=== PATIENT | male | born 1985 | race African-American/Black ===

== ENCOUNTER 2019-07-16 00:34 | Inpatient (IN) | payer OTHER ==
[~2019-07-16] VITALS: Ht 170.2 cm; Wt 68.0 kg
[2019-07-16] VITALS (7 sets, daily range): BP systolic 143–205; BP diastolic 69–123
[2019-07-16 00:54] LABS: ABSOLUTE NEUTROPHILS 7.2 thou/uL (1.4-8.2); BASOPHILS 0.3 % (0.0-2.0); EOSINOPHILS 0.2 % (0.0-3.0); HEMATOCRIT 44.8 % (42.0-52.0); HEMOGLOBIN 15.2 gm/dL (14.0-18.0); LYMPHOCYTES 14.3 % (24.0-44.0); MCH 30.6 pg (26.0-34.0); MCV 90.1 fL (80.0-100.0); MONOCYTES 7.2 % (1.0-8.0); PLATELET COUNT 360 thou/uL (150-400); RBC 4.97 mil/uL (4.50-6.00); RDW 15.1 % (10.5-14.5); WBC 9.2 thou/uL (4.0-11.0)
[2019-07-16 00:57] LABS: ANION GAP 20 mmol/L (7-16); BUN 27 mg/dL (7-18); CALCIUM 9.6 mg/dL (8.5-10.1); CHLORIDE 106 mmol/L (98-107); CO2 21 mmol/L (21-32); CREATININE 2.5 mg/dL (0.7-1.3); GLUCOSE 132 mg/dL (74-106); POTASSIUM 4.1 mmol/L (3.5-5.1); SODIUM 147 mmol/L (136-145)
[2019-07-16 01:07] LABS: AMP/METHAMP Negative (Negative); BARBITURATES Negative (Negative); BENZODIAZEPINES Negative (Negative); COCAINE Negative (Negative); METHADONE Negative (Negative); OPIATES Negative (Negative); PCP POSITIVE (Negative)
[2019-07-16 01:07] LABS: ALBUMIN 4.3 g/dL (3.4-5.0); DIRECT BILIRUBIN < 0.1 mg/dL (<0.1-0.2); SGOT 44 U/L (15-37); SGPT 35 U/L (30-65); TOTAL BILIRUBIN 0.6 mg/dL (<0.1-1.0); TOTAL PROTEIN 8.9 g/dL (6.4-8.2); TROPONIN-I <0.06 ng/mL (<0.06)
--- NOTE | 2019-07-16 02:51 | NUR ---
PT AWAKE, STATES HE THINKS HIS MONEY IS NOT ALL THERE, HIS LOTTERY TICKET NOT THERE. EMS CONTACTED. PT THINKS POLICE OR SOMEONE ELSE TOOK HIS MONEY. HE IS LOUD, IMPULSIVE. HAVE ATTEMPTED TO GET HOLD OF EMS AND POLICE, NOT SUCCESSFUL
--- NOTE | 2019-07-16 04:39 | NUR ---
PT ARRIVED TO UNIT FROM ER AT 0255. ADMITTED WITH PCP OVERDOSE AND PCP DELIRIUM. INCONTINENT OF BOWEL HERE AND ER. DENIES PAIN. POOR HISTORIAN. SOME HALLUCINATIONS AND RAMBLING SPEECH. BED ALARM ACTIVATED. FREQUENT OBSERVATION.
--- NOTE | 2019-07-16 10:51 | NUR ---
SOMNOLENT THIS A.M. IVF ORDERED. ST PER TELE. HTN NOTED. FALL PRECAUTIONS IN PLACE. CLOSE TO NURSES' STATION. WILL CONTINUE TO FOLLOW CLOSELY.
--- NOTE | 2019-07-16 12:07 | EKG ---
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 : 1985 Requested By: Darrell Danielson Order Number: [id number] MD: Mika Prater Measurements Intervals Doon Rate: 112 P: 79 SC: 101 QRS: 78 QRSD: 82 T: 264 QT: 332 QTc: 453 Interpretive Statements Sinus tachycardia Biatrial enlargement Left ventricular hypertrophy Repol abnrm suggests ischemia, diffuse leads Nonspecific ST segment abnormalities Artifact in lead(s) I,II,aVR No previous ECG available for comparison Electronically Signed On 07-16-2019 12:05:53 CDT by Mika Prater [email or web address] <ELECTRONICALLY SIGNED> By: Mika Prater MD 07/16/19 1205 0037 0037 Mika Prater MD /EPI
[2019-07-17 00:33] VITALS: BP 132/89
--- NOTE | 2019-07-17 03:47 | NUR ---
ASSESSEMENT DOCUMENTED.PT REMAINS A/OX2-3 WITH CONFUSION,PT SLEEPING MOST OF THE NOC BUT EASILY AROUSABLE.NO AGITATION EPISODES NOTED.PT ABLE TO VOICE HIS NEEDS WHEN PROMOTED.HAS PERIODS OF CONFUSION BUT EASILY REDIRECTED.JUAN PABLO DD,YELLOW URINE W/SEDIMENT.IVF PER ORDERS.SR ON MONITOR.ON RA W/O RESP DISTRESS.PT DENIES NEEDS AT THIS TIME.WILL CONT TO MONITOR PER POC.
[2019-07-17 04:33] VITALS: BP 135/86
[2019-07-17 06:03] LABS: HEMATOCRIT 37.7 % (42.0-52.0); MCH 31.1 pg (26.0-34.0); MCHC 33.8 g/dL (28.0-37.0); MCV 91.8 fL (80.0-100.0); RBC 4.1 mil/uL (4.50-6.00); RDW 15.5 % (10.5-14.5); WBC 7.4 thou/uL (4.0-11.0)
[2019-07-17 06:08] LABS: HEMOGLOBIN 12.7 gm/dL (14.0-18.0)
[2019-07-17 06:23] LABS: ALBUMIN 2.8 g/dL (3.4-5.0); PHOSPHORUS 2.5 mg/dL (2.5-4.9); POTASSIUM 4.1 mmol/L (3.5-5.1)
[2019-07-17 06:24] LABS: CALCIUM 7.5 mg/dL (8.5-10.1); CREATININE 1.1 mg/dL (0.7-1.3)
[2019-07-17] MEDS ORDERED: CATAPRES0.1 MG PO (08:07)
--- NOTE | 2019-07-17 10:04 | NUR ---
DR. TUCKER DISCHARGING PATIENT. HE STATES HE IS HOMELESS AND NEEDS TRANSPORTATION INTO [place]. ST PER TELE. FALL PRECAUTIONS IN PLACE. CLOSE TO NURSES' STATION. WILL CONTINUE TO FOLLOW CLOSELY.
[2019-07-17 11:20] VITALS: BP 135/103
[2019-07-17 13:12] VITALS: BP 135/103
== END 2019-07-17 14:33 | disposition home or self-care (01) | DRG 917 ==
LOC: ER 00:34 → EROBS 02:00 → 2N 02:00
PROVIDERS: Emergency Medicine; Hospitalist; Nurse Practitioner Family; ADMIT Hospitalist
DX: T40.991A Poisoning by other psychodysleptics [hallucinogens], accidental (unintentional), initial encounter (principal); G92 Toxic encephalopathy; N17.9 Acute kidney failure, unspecified; E87.2 Acidosis; I16.0 Hypertensive urgency; F16.10 Hallucinogen abuse, uncomplicated; R74.0 Nonspecific elevation of levels of transaminase and lactic acid dehydrogenase [LDH]; I10 Essential (primary) hypertension; E86.0 Dehydration; F12.10 Cannabis abuse, uncomplicated; F32.9 Major depressive disorder, single episode, unspecified; Z79.899 Other long term (current) drug therapy; Y92.89 Other specified places as the place of occurrence of the external cause
CPT/HCPCS: 10081